=== PATIENT | female | born 1940 | race Caucasian/White ===

== ENCOUNTER 2021-03-29 23:52 | Inpatient (IN) | payer MEDICARE ==
[~2021-03-29] VITALS: Ht 162.6 cm; Wt 63.8 kg
[2021-03-30] MEDS ORDERED: PRECOSE100 MG PO (00:08)
[2021-03-30] MEDS ORDERED: NORVASC5 MG PO (00:09)
[2021-03-30] MEDS ORDERED: ASPIRIN325 MG PO (00:09)
[2021-03-30] MEDS ORDERED: LIPITOR20 MG PO (00:10)
[2021-03-30] MEDS ORDERED: BACLOFEN10 MG PO (00:11)
[2021-03-30] MEDS ORDERED: BUTRANS1 EAC3 TRANSDERM (00:12)
[2021-03-30] MEDS ORDERED: ROCALTROL0.25 MCG PO (00:13)
[2021-03-30] MEDS ORDERED: DONEPEZIL HCL5 MG PO (00:13)
[2021-03-30] MEDS ORDERED: CARDURA1 MG PO (00:14)
[2021-03-30] MEDS ORDERED: FLUTICASONE PRO16 GM NASAL (00:15)
[2021-03-30] MEDS ORDERED: GABAPENTIN100 MG PO (00:15)
[2021-03-30] MEDS ORDERED: COZAAR25 MG PO (00:16)
[2021-03-30] MEDS ORDERED: NEURONTIN 300300 MG PO (00:16)
[2021-03-30] MEDS ORDERED: MELATONIN 3 MG1 TAB PO (00:17)
[2021-03-30] MEDS ORDERED: NAMENDA10 MG PO (00:17)
[2021-03-30] MEDS ORDERED: REMERON15 MG PO (00:18)
[2021-03-30] MEDS ORDERED: OMEPRAZOLE20 M1 PO (00:19)
[2021-03-30] MEDS ORDERED: OXYBUTYNIN CHLOR5 MG PO (00:19)
[2021-03-30] MEDS ORDERED: MIRALAX17 GM PO (00:20)
[2021-03-30] MEDS ORDERED: POTASSIUM CHLO10 ME1 PO (00:21)
[2021-03-30] MEDS ORDERED: SENNA LAXATIVE8.6 MG PO (00:22)
[2021-03-30] MEDS ORDERED: ULTRAM50 MG PO ×2 (00:23→00:24)
[2021-03-30] MEDS ORDERED: HUMULIN R100 UNIT/1 SC (00:28)
--- NOTE | 2021-03-30 12:20 | NUR ---
NEW ADMIT TO DR SCHWARTZ ON LONGTERM FOR SUICIDAL IDEATION FROM [facility]. PATIENT LIVES AT THE [facility]. PATIENT ATTEMPTED TO HANG HERSELF WITH A PHONE CORD. PATIENT TRANSPORTED TO LONGTERM VIA EMS. UPON ARRIVAL, PATIENT IS ANXIOUS AND AGITATED. PATIENT ANGRY ABOUT BEING PUT IN PAPER SCRUBS AT [facility]. PATIENT DENIES THOUGHTS OF SUICIDE AT THIS TIME. STATED SOMEONE WAS GOING TO KILL HER SO SHE WAS GOING TO KILL HERSELF BEFORE HE COULD. PATIENT IS DEPRESSED. PLEASANT AND COOPERATIVE WITH ADMISSION ASSESSMENTS. CONSENTS TO TREAT RECEIVED FROM HER , LEXIE DAVILA. PATIENT IS A FULL CODE. CODE OF 2677 GIVEN. UNIT INFORMATION GIVEN.
[2021-03-30 18:17] VITALS: BP 138/82
--- NOTE | 2021-03-30 19:48 | NUR ---
REECIVED IN DAYROOM. SITTING IN A CHAIR WITH PEERS AT HER SIDE. CALM AND COOPERATIVE WITH CARE AND ASSESSMENT. DENIES THOUGHTS OF SELF HARM. ENCOURAGE TO EXPRESS NEEDS. RESTING IN CALMLY IN BED WITH EYES OPEN. MHT AT BEDSIDE. STATES A PEERS AT HER INTERMEDIATE WAS GOING TO KILL HER AND THATS WHY TRIED TO KILL HERSELF BEFORE THEY COULD DO IT. CONTINUE PLAN OF CARE.
[2021-03-30 20:20] VITALS: BP 151/62
[2021-03-31 00:28] LABS: BASOPHILS 0.9 % (0-2); HEMATOCRIT 35.6 % (36.0-48.0); HEMOGLOBIN 12.1 g/dL (12-16); LYMPHOCYTES 20.3 % (15-50); MCHC 33.9 g/dL (31.0-37.0); MCV 88.4 fL (80.0-100.0); MEAN PLATELET VOLUME 8.8 fL (7.4-10.4); MONOCYTES 6.8 % (2-11); PLATELET COUNT 220 10x3/uL (130-400); RBC 4.02 10x6/uL (4.00-5.40); RDW 13.6 % (11.5-14.5); WBC 7.2 10x3/uL (4.8-10.8)
--- NOTE | 2021-03-31 01:01 | NUR ---
NEGATIVE COVID RESULTS RECEIVED FROM [facility] IN [place]. RESULTS IN CHART.
[2021-03-31 01:24] LABS: ALBUMIN 3.4 g/dL (3.4-5.0); ANION GAP 11.1 mmol/L (8-16); BILIRUBIN - TOTAL 0.5 mg/dL (0.2-1.3); CALCIUM 9.4 mg/dL (8.5-10.1); CARBON DIOXIDE 24.7 mmol/L (21.0-32.0); CREATININE - SERUM 1.2 mg/dL (0.6-1.3); POTASSIUM - SERUM 3.8 mmol/L (3.5-5.1); PROTEIN - SERUM 6.7 g/dL (6.4-8.2); THYROID STIMULATING HORMONE 1.99 uIU/mL (0.36-3.74)
[2021-03-31 08:00] VITALS: BP 106/60
[2021-03-31 08:07] LABS: CHOL - HDL RATIO 2.8 ratio (2.3-4.1); LDL-HDL RATIO 1.2 ratio (1.5-3.5)
[2021-03-31 09:11] LABS: BILIRUBIN NEGATIVE (NEGATIVE); KETONE NEGATIVE (NEGATIVE); NITRITE NEGATIVE (NEGATIVE); UROBILINOGEN NORMAL mg/dL (< 2)
[2021-03-31 09:13] LABS: BACTERIA FEW HPF (NONE SEEN); SQUAMOUS EPITHELIAL 0-5 HPF (0-4); WHITE CELLS - URINE 0-5 HPF (0-4)
[2021-03-31 10:05] VITALS: Ht 162.6 cm; Wt 63.8 kg
[2021-03-31 11:16] LABS: CKMB 2.4 U/L (0.0-3.6); CREATINE KINASE 83 UL (21-215); TROPONIN-I < 0.017 ng/mL (0.000-0.060)
[2021-03-31 17:04] LABS: CKMB 2.9 U/L (0.0-3.6); CREATINE KINASE 90 UL (21-215)
[2021-03-31 17:05] LABS: TROPONIN-I < 0.017 ng/mL (0.000-0.060)
--- NOTE | 2021-03-31 17:06 | NUR ---
ORIENTED X 3.COMPLIANT WITH STAFF AND MEDS.KEEPS TO SELF MUCH OF THE DAY BUT DOES SOCIALIZE WITH PEERS.DENIES THOUGHTS OF HARMING SELF.WILL CONTINUE WITH CURRENT PLAN OF CARE,MONITOR FOR CHANGES AND SAFETY.
[2021-03-31 20:00] VITALS: BP 104/46
[2021-03-31 23:10] LABS: CKMB 3.7 U/L (0.0-3.6); CREATINE KINASE 108 UL (21-215)
[2021-03-31 23:11] LABS: TROPONIN-I < 0.017 ng/mL (0.000-0.060)
--- NOTE | 2021-04-01 04:28 | NUR ---
B)RECEIVED PATIENT SITTING OUTSIDE THE NURSE'S STATION. INTERACTIVE WITH PEERS. PT BELIEVED HAD HIRED SOME PEOPLE TO KILL HER HOWEVER SHE WAS GOING TO BEAT THEM TO IT. RELATES SHE FEELS SAFE HERE AND DENIES SI. CALM AND COOPERATIVE. I)ADMINISTER MEDS AND MONITOR COMPLIANCE. OBTAIN VERBAL NO HARM CONTRACT. R)MED COMPLIANT. CONTRACTS VERBALLY FOR NO SELF HARM. P)CONTINUE POC AND PROVIDE SAFE ENVIRONMENT.
[2021-04-01 06:11] LABS: RAPID PLASMA REAGIN Non Reactive (Non Reactive)
[2021-04-01 08:02] VITALS: BP 100/67
--- NOTE | 2021-04-01 19:03 | NUR ---
IS ORIENTED X 3.DENIES THOUGHTS OF SELF HARM .IS COMPLIANT WITH STAFF AND MEDS.PROPELLS SELF IN WHEELCHAIR.MOOD IS MUCH BETTER TODAY,SMILES AND SOCIALIZES WITH STAFF AND PEERS.WILL CONTINUE WITH CYRRENT PLAN OF CARE,MONITOR FOR CHANGES AND SAFETY.
[2021-04-01 20:15] VITALS: BP 143/67
--- NOTE | 2021-04-02 02:06 | NUR ---
B) Patient is alert and oriented X 3, calm and cooperative, denies S.I, I) Administered scheduled medications as ordered, monitored for safety, contracted for safety R) Medication compliant,pleasant and friendly, P) Continue plan of care.
[2021-04-02 08:00] VITALS: BP 110/51
--- NOTE | 2021-04-02 15:22 | PN ---
PATIENT:SANDY DAVILA MEDICAL RECORD: [id number] LOCATION:[facility] ADMISSION DATE: 03/30/21 PROGRESS NOTE DATE OF SERVICE: 04/01/2021 SUBJECTIVE: The patient's case was discussed with staff. She has no new complaint. OBJECTIVE: The patient is in good behavioral control. She has poor insight about her situation. ASSESSMENT: 1. Dementia. 2. Major depression. PLAN: The patient will have her Zoloft increased to 25 mg daily. Zoloft is being used to treat her underlying depressive symptoms. She will be monitored for clinical symptoms associated with its use. TRANSINT:[id number] Voice Confirmation ID: [id number] DOCUMENT ID: [id number] OLVIN SCHWARTZ MD at 1522 CC: [id number] DICTATION DATE: 04/01/21 1636 TIE BINDER: 04/02/21 0338 ADM IN [facility] [address] [place] [address]
--- NOTE | 2021-04-02 15:22 | PN ---
PATIENT:SANDY DAVILA MEDICAL RECORD: [id number] LOCATION:[facility] ADMISSION DATE: 03/30/21 PROGRESS NOTE DATE OF SERVICE: 03/31/2021 SUBJECTIVE: The patient's case was discussed with staff. She has no new complaint. OBJECTIVE: The patient slept reasonably well last night. She denies that she would seek to hurt herself. She is partially oriented. ASSESSMENT: 1. Dementia. 2. Major depression. PLAN: The patient will be maintained on current medications. Her long-term prognosis is guarded. TRANSINT:[id number] Voice Confirmation ID: [id number] DOCUMENT ID: [id number] OLVIN SCHWARTZ MD at 1522 CC: [id number] DICTATION DATE: 03/31/21 1519 PAINT TRIMMER PIPE BOWLS: 04/02/21 0052 ADM IN [facility] [address] [id number]
--- NOTE | 2021-04-02 16:24 | NUR ---
Nutrition Re-Assessment Diet: Cardiac PO intake: ~52% average x last 6 meals Last BM: 03/31/21 Wt: 130.6# (04/02/21) Meds noted: magox, miralax, SSI Labs noted: POC Glu 275(H) Estimated nutrition needs: 1200-1475cal (20-25kcal/kg Act), 47-59gms protein (0.8-1gms/kg), 1475-1775mL fluid (or per MD) Nutrition diagnosis: -Altered nutrition related lab values r/t DM dx AEB elevated blood glucose. -Inadequate energy intake r/t inadequate oral intake AEB PO intake <65%. Nutrition goals: -PO intake =/>65% meals -Meet fluid needs -Stable weight DHS -Blood glucose to trend nearer WNL Recomendations/Interventions: -Will change diet to diabetic 2/2 PMHx of DM dx and currently elevated blood glucose. -Will add Glucerna TID with meals. -Will honor food preferences within diet restrictions. -RD will follow-up within 7 days.
--- NOTE | 2021-04-02 18:05 | NUR ---
Rec'd patient this am self propelling her w/c about the unit.She is a/o times [address] to [address]. She is med compliant and takes her meds whole without diff. She denies any suicide ideation, self harm, or injury. She has not demonstrated any type of suicidal behavior. She has been calm and cooperative. She has sat with another new patient this afternoon and talked and laughed sitting in their own group. She attended group therapy this morning and participated well. Her spouse, after passcode verified, spoke with patient per phone call this afternoon.
[2021-04-02 20:00] VITALS: BP 124/50
--- NOTE | 2021-04-02 21:56 | NUR ---
PT IS ALERT AND ORIENTED TO SELF, PLACE AND SITUATION. RECEIVED IN DAYROOM SOCIALIZING WITH PEERS. CALM AND COOPERATIVE WITH STAFF. EXPRESSESS APPRECIATION FOR STAFF AND CARE PROVIDED. COMPLIANT WITH ALL MEDICATIONS. EASY TO REDIRECT. ABLE TO VOICE NEEDS AND WANTS. DENIES SI. MONITOR FOR SAFETY.
[2021-04-03 11:58] VITALS: BP 146/76
--- NOTE | 2021-04-03 11:59 | NUR ---
ALERT, CALM, COOPERATIVE, NO SUICIDAL IDEATIONS NOTED. MEDS ADMIN PER ORDERS. NO ADVERSE REACTION TO MEDS. CALLED AND STATED THAT HE WOULD BE PRESENT FOR VISITATION.
--- NOTE | 2021-04-03 15:24 | PN ---
PATIENT:SANDY DAVILA MEDICAL RECORD: [id number] LOCATION:[facility] ADMISSION DATE: 03/30/21 PROGRESS NOTE DATE OF SERVICE: 04/02/2021 SUBJECTIVE: The patient's case was discussed with staff. She has no new complaint. OBJECTIVE: The patient is in good behavioral control with limited insight about her condition. She is tolerating her medications reasonably well. ASSESSMENT: Dementia. PLAN: Current medicines have been reviewed. The patient is not having any suicidal thoughts. She will be maintained on current medicines. TRANSINT:[id number] Voice Confirmation ID: [id number] DOCUMENT ID: [id number] OLVIN SCHWARTZ MD at 1524 CC: [id number] DICTATION DATE: 04/02/21 170 PRODUCT PROMOTER RETAIL PET: 04/03/21 0029 ADM IN [facility] [address] [place] [address]
[2021-04-03 20:00] VITALS: BP 118/57
--- NOTE | 2021-04-03 21:59 | NUR ---
RECEIVED PATIENT IN DAYROOM SITTING WITH OTHER PATIENTS, COMPLIANT WITH MEDS, ABLE TO MAKE NEEDS KNOWN, SHE IS NERVOUS AT BED TIMED REGARDING OTHER PATIENTS COMING INTO HER ROOM, SHE HAS BEEN ASSURED OVER AND OVER OF HER SAFETY FROM THE TECH. WILL FOLLOW POC
--- NOTE | 2021-04-04 03:03 | NUR ---
PATIENT GIVEN TRAMADOL 50mg PO FOR GENERALIZED PAIN 7 OF 10.
[2021-04-04 08:04] VITALS: BP 110/40
[2021-04-04 11:32] VITALS: BP 110/40
--- NOTE | 2021-04-04 15:23 | NUR ---
Rec'd patient this am sitting in the hallway. She is A/O times 1 to person.She is med compliant and takes her meds whole without diff. She participated in group therapy today and likes to sit with another patient and visit. s he is very quiet . She has shown no aggression past day 1 to this nurse. She denies any suicide ideation or harm. FSBS AT [phone]
[2021-04-04 20:00] VITALS: BP 166/96
--- NOTE | 2021-04-05 00:17 | NUR ---
RECEIVED PATIENT IN DAYROOM, SHE IS PLEASANT, DENIES SUICIDIAL IDEATIONS, COMPLIANT WITH MEDS, MAKES NEEDS KNOWN. WILL FOLLOW POC
[2021-04-05 10:36] VITALS: BP 98/43
--- NOTE | 2021-04-05 17:49 | NUR ---
ALERT, CALM, COOPERATIVE, MEDICATION COMPLIANT. DENIES SUICIDAL IDEATIONS. NO ADVERSE REACTION TO MEDS. SPOUSE HERE FOR VISITATION TIME. SOMETIMES GETS AGITATED WITH OTHER PATIENTS. CONTINUE PLAN OF CARE.
[2021-04-05 20:00] VITALS: BP 126/40
--- NOTE | 2021-04-06 00:52 | NUR ---
RECEIVED PATIENT IN HER ROOM, SHE IS PLEASANT, HOLDS EYE CONTACT, DENIES S/I. COMPLIANT WITH MEDS. MAKES HER NEEDS KNOWN. WILL FOLLOW POC
[2021-04-06 07:30] VITALS: BP 119/57
--- NOTE | 2021-04-06 17:43 | NUR ---
Alert, calm, cooperative, denies suicidal ideations. Meds admim per orders with complete med compliance noted. No adverse reaction to meds. Tends to get aggravated at times with other patients, however there was no episodes of agitation noted this shift. Cont. POC.
[2021-04-06 23:36] VITALS: BP 132/44
--- NOTE | 2021-04-06 23:52 | NUR ---
RECEIVED IN HALLWAY OUSIDE OF NURSES STATION. SOCIAL WITH PEERS. CALM AND COOPERATIVE WITH CARE AND ASSESSMENT. NO STATEMENTS OF SELF HARM VOICED. ENCOURAGE TO EXPRESS NEEDS. RESTING IN BED WITH EYES CLOSED AT THIS TIME. CONTINUE PLAN OF CARE.
[2021-04-07 07:30] VITALS: BP 156/56
--- NOTE | 2021-04-07 12:15 | NUR ---
RECEIVED IN HALLWAY OUTSIDE OF NURSES STATION. SOCIALIZING WITH PEERS. CALM AND COOPERATIVE WITH CARE AND ASSESSMENT. DENIES SUICIDAL IDEATION. STATES SHE DOESNT WANT TO AND WOULD NOT EVER ATTEMPT TO KILL HERSELF AGAIN. STATED SHE DIDNT WANT TO WHEN SHE ATTEMPTED AND THAT SHE ONLY DID IT BECAUSE SHE HAD TO KILL HERSELF BEFORE THE OTHER RIN WAS GOING TO KILL HER. REDIRECT AND REORIENT NEEDED. EATING LUNCH AT THIS TIME. CONTINUE PLAN OF CARE.
--- NOTE | 2021-04-07 20:18 | NUR ---
RECEIVED IN HALLWAY OUTSIDE OF NURSES STATION. SITTING WITH PEERS AT HER SIDE. SOCIAL. CALM AND COOPERATIVE WITH CARE AND ASSESSMENT. NO STATEMENTS OF SELF HARM VOICED. ENCOURAGE TO EXPRESS NEEDS. CONTINUES TO SIT CALMLY IN HALLWAY. CONTINUE PLAN OF CARE.
[2021-04-07 23:05] VITALS: BP 127/57
[2021-04-08 08:00] VITALS: BP 124/85
--- NOTE | 2021-04-08 10:48 | PN ---
PATIENT:SANDY DAVILA MEDICAL RECORD: [id number] LOCATION:[facility] ADMISSION DATE: 03/30/21 PROGRESS NOTE DATE OF SERVICE: 04/03/2021 SUBJECTIVE: The patient's case was discussed with staff. She has no new complaint. OBJECTIVE: The patient is depressed and withdrawn. She has not been significantly disruptive in any way. ASSESSMENT: Dementia. PLAN: The patient is sleeping well. Her appetite is better. The antidepressant medication is going to have to be given more of an opportunity to become effective. Her long-term prognosis is guarded. TRANSINT:[id number] Voice Confirmation ID: [id number] DOCUMENT ID: [id number] OLVIN SCHWARTZ MD at 1048 CC: [id number] DICTATION DATE: 04/03/21 1548 INTERNETWORKING TECHNICIAN: 04/03/21 1702 ADM IN [facility] [address] [id number]
--- NOTE | 2021-04-08 14:44 | NUR ---
RECEIVED PATIENT IN HALLWAY SOCIALIZING WITH PEERS. PATIENT DENIES SUICIDAL IDEATION AT THIS TIME. PATIENT IS AWAKE AND ALERT X4. CALM AND COOPERATIVE WITH ASSESSMENT. PRESCRIBED MEDICATIONS PROVIDED ORDERED. MED COMPLIANT. PATIENT'S BEHAVIOR IS PLEASANT AT THIS TIME. FALL PRECAUTIONS IN PLACE FOR SAFETY. WILL CONTINUE PLAN OF CARE.
--- NOTE | 2021-04-08 21:40 | NUR ---
RECEIVED IN HALLWAY OUTSIDE OF NURSES STATION. SOCIAL WITH PEERS. CALM AND COOPERATIVE WITH CARE AND ASSESSMENT. NO STATEMENTS OF SELF HARM VOICED. ENCOURAGE TO EXPRESS NEEDS. RESTING QUIETLY IN BED. CONTINUE PLAN OF CARE.
[2021-04-08 21:41] VITALS: BP 105/44
[2021-04-09 08:00] VITALS: BP 157/73
--- NOTE | 2021-04-09 12:46 | PN ---
PATIENT:SANDY DAVILA MEDICAL RECORD: [id number] LOCATION:[facility] ADMISSION DATE: 03/30/21 PROGRESS NOTE DATE OF SERVICE: 04/08/2021 SUBJECTIVE: The patient's case was discussed with staff. She has no new complaint. OBJECTIVE: The patient is in good behavioral control with poor insight about her condition. She tolerates her medicines well. ASSESSMENT: 1. Dementia. 2. Major depression. PLAN: Current medicines and therapies have been reviewed and will be maintained. Long-term prognosis is guarded. TRANSINT:[id number] Voice Confirmation ID: [id number] DOCUMENT ID: [id number] OLVIN SCHWARTZ MD at 1246 CC: [id number] DICTATION DATE: 04/08/21 1721 INSTRUCTION ASSISTANT PRINCIPAL: 04/08/21 [address] [facility] [address] [place] [address]
--- NOTE | 2021-04-09 15:18 | NUR ---
Rec'd patient this am amublatory in hallway but she keeps her w/c close for long distances. She is a/o to person and situation. She is very confused at times. She is calm and cooperative. She is med compliant and takes her meds whole without diff. She denies any suicidal ideations or self harm. She is directable and redirectable. She sat in group this am and participated well.
--- NOTE | 2021-04-09 16:37 | NUR ---
Nutrition Re-Assessment Diet: Diabetic + Glucerna with meals PO intake: 100% x last 9 meals Last BM: 04/08/21 x 2 Wt: 137# (04/06/21); Admit Wt: 130# (03/30/21) Meds noted: Magox, miralax, SSI Labs noted: POC Glu 180(H) Estimated nutrition needs: 1200-1475cal (20-25kcal/kg Act), 47-59gms protein (0.8-1gms/kg), 1475-1775mL fluid (or per MD) Nutrition diagnosis: Altered nutrition related lab values r/t DM dx AEB elevated blood glucose. Nutrition goals: -PO intake =/>65% meals -Meet fluid needs -Stable weight DHS -Blood glucose to trend WNL Recommendations/Interventions: -Recommend continue current diet. Will continue to honor food preferences within diet restrictions. -Will continue to monitor PO intake and wt trend. -RD will follow-up within 7 days.
[2021-04-09 20:00] VITALS: BP 118/58
--- NOTE | 2021-04-10 03:23 | NUR ---
B)RECEIVED PATIENT SITTING OUTSIDE THE NURSE'S STATION. INTERACTIVE WITH PEERS. ALERT AND ORIENTED. CALM AND COOPERATIVE. I)ADMINISTER MEDS AND MONITOR COMPLIANCE. OBTAIN VERBA CONTRACT FOR NO SELF HARM. R)MED COMPLIANT. CONTRACTS VERBALLY FOR NO SELF HARM DENIES SI. P)CONTINUE POC AND PROVIDE SAFE ENVIRONMENT.
[2021-04-10 09:29] VITALS: BP 129/57
--- NOTE | 2021-04-10 15:14 | PN ---
PATIENT:SANDY DAVILA MEDICAL RECORD: [id number] LOCATION:[facility] ADMISSION DATE: 03/30/21 PROGRESS NOTE DATE OF SERVICE: 04/09/2021 SUBJECTIVE: The patient's case was discussed with staff. She has no new complaint. OBJECTIVE: The patient is in good behavioral control. She has a depressed mood and no thoughts of self-harm. She is partially oriented. ASSESSMENT: 1. Major depression. 2. Dementia. PLAN: The patient will be treated with a slightly higher dose of Zoloft. Her long-term prognosis is guarded. Both supportive and educational interventions were made. TRANSINT:[id number] Voice Confirmation ID: [id number] DOCUMENT ID: [id number] OLVIN SCHWARTZ MD at 1514 CC: [id number] DICTATION DATE: 04/09/21 1738 COMMERCIAL TRUCK DRIVER: 04/10/21 0110 ADM [id number] [place] [address]
--- NOTE | 2021-04-10 15:15 | NUR ---
Rec'd patient this am up sitting in a w/c. She is a/o times 2 to person and situation. She is med compliant and took her meds whole. Her blood glucose level was 154 at noon. She rec'd a skin tear to her right forearm that occured ont top of a bruise. She states she "gets them all the time". She states she doesn't know how it happened.Area cleaned, pulled skin together, applies steri strips and covered with kami and tapped in place She is directable and redirectable.
[2021-04-10 20:00] VITALS: BP 122/47
--- NOTE | 2021-04-11 01:32 | NUR ---
B)RECEIVED PATIENT SITTING OUTSIDE THE NURSE'S NIC. ORIENTED X4. INTERACTS WITH PEERS AND STAFF. RELATES SHE TRIES TO DO WHAT IS ASKED OF HER AND NOT BE A TROUBLE MAKER. CALM AND COOPERATIVE. I)ADMINISTER MEDS AND MONITOR COMMPLIANCE. OBTAIN VERBAL CONTRACT FOR NO SELF HARM. R)MED COMPLIANT. CONTRACTS VERBALLY FOR NO SELF HARM. DENIES SI. P)CONTINUE POC AND PROVIDE SAFE ENVIRONMENT.
--- NOTE | 2021-04-11 03:31 | NUR ---
PATIENT GIVEN TRAMADOL 50 MG PO FORBACK PAIN 7 OF 10.
[2021-04-11 10:11] VITALS: BP 152/62
--- NOTE | 2021-04-11 14:04 | NUR ---
Rec'd this am sitting up in a w/c in hallway. She is a/o to person and situation. She is med compliant and took meds whole without diff. She has demonstrated no signs of suicidal ideation or self harm. She has sat with the group but has visited with the female patient next to her or napped.
--- NOTE | 2021-04-11 18:52 | NUR ---
pt sitting in the hallway speaking with another pt at this time. pt become upset with other pt stating loudly "why don't you get the hell out of here?" nurse the patients and resolved issue.
[2021-04-11 20:00] VITALS: BP 106/41
--- NOTE | 2021-04-11 22:38 | NUR ---
PT IS ALERT AND ORIENTED X4. RECEIVED IN THE HALLWAY OUTSIDE OF THE NURSES STATION. PLEASANT WITH STAFF. ABLE TO VOICE NEEDS AND WANTS. EXPRESSES REGRETS FOR HER BEHAVIOR WITH ANOTHER PT EARLIER THIS EVENING. COMPLIANT WITH ALL MEDICATIONS. DENIES SI. EASY TO REDIRECT. MONITOR FOR SAFETY.
[2021-04-12 09:39] VITALS: BP 98/74
--- NOTE | 2021-04-12 16:00 | NUR ---
SPOUSE HERE FOR VISIT.
--- NOTE | 2021-04-12 18:51 | NUR ---
IS ORIENTED X 3.COMPLIANT WITH MEDS AND STAFF BUT HAS INTERFERED WITH INTERACTIONS BETWEEN PEERS.SHE TOLD A MALE PATIENT TO QUIT TALKING TO A FEMALE PATIENT AND THE TWO OF THEM KICKED AT EACH OTHER BEFORE THIS NURSE WAS ABLE TO SEPERATE THEM.THERE WERE NO INJURIES AND THEY BOTH WERE REDIRECTED AND COMPLIED.WILL CONTINUE WITH CURRENT PLAN OF CARE,MONITOR FOR CHANGES AND SAFETY.
[2021-04-12 22:23] VITALS: BP 197/76
--- NOTE | 2021-04-12 23:57 | NUR ---
PT IS ALERT AND ORIENTED X4. RECEIVED IN A WHEELCHAIR OUTSIDE THE NURSES STATION. OBSERVED CONSOLING PEERS. RELATES THAT TODAY WAS A BAD DAY. SHE STATES "THOSE TWO GENTLEMAN WERE TRYING TO TAKE HER AWAY FROM ME AND SHE WAS VERY SCARED. I TOLD THE STAFF BUT THEY TOLD ME TO MIND MY OWN BUSINESS AND I GOT UPSET AND KICKED AT ONE OF THE MEN BECAUSE THEY WOULDNT LEAVE MY FRIEND ALONE." ENCOURAGED PT TO INFORM STAFF AND TO LET THEM HANDLE THE SITUATION FOR HER SAFETY. COMPLIANT WITH ALL MEDICATIONS. EASY TO REDIRECT. MONITOR FOR SAFETY.
[2021-04-13 09:21] VITALS: BP 112/50
--- NOTE | 2021-04-13 18:06 | NUR ---
Rec'd patient up this am in hallway. She can self propel in her w/c/ She is med compliant. She is directable and redirectable. She has a small skin tear to rt. FA. Her spouse Abel calls, after password verified, requesting how she is doing today. She sat with the group and participated some. She has kept to herself and more alone today.
--- NOTE | 2021-04-13 20:30 | NUR ---
RECEIVED IN HALLWAY. SITTING IN HALLWAY WITH PEERS AT HER SIDE. CALM AND COOPERATIVE WITH CARE AND ASSESSMENT. NO STATEMENTS OF SELF HARM VOICED THIS EVENING. ENCOURAGE TO EXPRESS NEEDS. CONTINUES TO SIT CALMLY IN HALLWAY. CONTINUE PLAN OF CARE.
[2021-04-13 21:48] VITALS: BP 189/68
[2021-04-14 08:00] VITALS: BP 182/71
--- NOTE | 2021-04-14 08:00 | NUR ---
REC'D PT SITTING IN HALLWAY SOCIALIZING WITH PEERS. AWAKE AND ALERT X 3. CALM AND COOPERATIVE WITH ASSESSMENT. NO BEHAVIORS NOTED. PT MOOD IS PLEASANT. PRESCRIBEDE MEDS PROVIDED ORDERED. MED COMPLIANT. REDIRECT AND REORIENT NEEDED. FALL PRECAUTIONS IN PLACE. WILL CPOC.
--- NOTE | 2021-04-14 14:38 | PN ---
PATIENT:SANDY DAVILA MEDICAL RECORD: [id number] LOCATION:[facility] ADMISSION DATE: 03/30/21 PROGRESS NOTE DATE OF SERVICE: 04/10/2021 SUBJECTIVE: The patient's case was discussed with staff. She has no new complaint. OBJECTIVE: The patient is in good behavioral control. She has shown improvement in her mood and behaviors. ASSESSMENT: 1. Dementia. 2. Major depression. PLAN: The patient has no thoughts of self-harm. She is going to require a great deal of supervision and the details of how this will be accomplished are still being worked out. TRANSINT:[id number] Voice Confirmation ID: [id number] DOCUMENT ID: [id number] OLVIN SCHWARTZ MD at 1438 CC: [id number] DICTATION DATE: 04/10/21 1602 BOILER ASSISTANT OPERATOR: 04/10/21 223 ADM IN [facility] [address] [place] [address]
[2021-04-14] MEDS ORDERED: NITROQUICK0.4 MG SL (16:20)
[2021-04-14] MEDS ORDERED: XANAX0.25 MG PO (16:20)
[2021-04-14] MEDS ORDERED: SEROQUEL25 MG PO (16:21)
[2021-04-14] MEDS ORDERED: ZOLOFT50 MG PO (16:21)
[2021-04-14] MEDS ORDERED: MAG-OX 400 MG400 MG PO (16:22)
[2021-04-14] MEDS ORDERED: PROTONIX40 MG PO (16:22)
[2021-04-14 20:00] VITALS: BP 138/57
--- NOTE | 2021-04-14 20:40 | NUR ---
RECEIVED IN HALLWAY. SITTING IN A CHAIR WITH PEERS AT HER SIDE. CALM AND COOPERATIVE WITH CARE AND ASSESSMENT. NO STATEMENTS OF SELF HARM VOICED. ENCOURAGE TO EXPRESS NEEDS. CONTINUES TO SIT CALMLY IN HALLWAY. CONTINUE PLAN OF CARE.
[2021-04-15 08:02] VITALS: BP 159/56
--- NOTE | 2021-04-15 08:27 | NUR ---
repack room worker contacted patient's daughter Loulou to alert at discharge today between 1130. No other needs were voiced at this time. Patient is going back to [facility].
--- NOTE | 2021-04-15 11:45 | NUR ---
PT DISCHARGED TO [facility]. ALL PAPERWORK FAXED AND COPY SENT WITH PT AT THIS TIME. PT TRANSPORTED PER [facility] COPYIST. NO S/SX OF DISTRESS NOTED.
--- NOTE | 2021-04-15 11:52 | PN ---
PATIENT:SANDY DAVILA MEDICAL RECORD: [id number] LOCATION:[facility] ADMISSION DATE: 03/30/21 PROGRESS NOTE DATE OF SERVICE: 04/14/2021 SUBJECTIVE: The patient's case was discussed with staff. She has no new complaint. OBJECTIVE: The patient is partially oriented. Her mood is near euthymic. She certainly has no thoughts of harming herself. ASSESSMENT: 1. Dementia. 2. Major depression. PLAN: The patient will be transitioned out of the hospital tomorrow. Her long-term prognosis is guarded. She will have followup with her primary care correction physician. TRANSINT:[id number] Voice Confirmation ID: [id number] DOCUMENT ID: [id number] OLVIN SCHWARTZ MD at 1152 CC: [id number] DICTATION DATE: 04/14/21 1616 SUPERVISOR PUBLICATIONS: 04/14/212036 ADM IN [id number] [place] [address]
--- NOTE | 2021-04-16 14:02 | DS ---
PATIENT:SANDY DAVILA :38 MEDICAL RECORD: [id number] DISCHARGE SUMMARY ADMISSION DATE: 03/30/21 DISCHARGE DATE: 04/15/21 IDENTIFYING DATA: The patient is 81 years old and she was admitted to the hospital on a voluntary basis. CHIEF COMPLAINT: Suicidal gesture. HISTORY OF PRESENT ILLNESS: The patient was transferred to us from the [facility] Emergency Department. She apparently has been living in a shelter and wrapped a phone cord around her neck with the intention of trying to kill herself. She did report suicidal ideations and endorsed numerous depressive symptoms. She also showed a great deal of confusion. HOSPITAL COURSE: The patient was admitted to the hospital and evaluated from both a medical, psychological, and social standpoint. She was treated with both antidepressant and memory enhancing medications and did show improvement through the course of the hospitalization such that she could be returned to the shelter. 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 AXIS II: None. AXIS III: Diabetes, hypertension, congestive heart failure, chronic kidney disease, neuropathy. AXIS IV: Moderate stressors. AXIS V: Global Assessment of Functioning is 40. PLAN: At the time of discharge, the patient was in good behavioral control and had no active thoughts of harming herself or others. She was tolerating her medicines well. Her long-term prognosis is guarded and followup will be with her primary care shelter physician. TRANSINT:[id number] Voice Confirmation ID: [id number] DOCUMENT ID: [id number] OLVIN SCHWARTZ MD at 1402 CC: [id number] DICTATION DATE: 04/15/21 1603 HEARING HEALTHCARE PRACTITIONER: 04/16/21 0423 DIS IN 04/15/[id number] [place] [address]
== END 2021-04-15 11:45 | DRG 57 ==
LOC: D.PSYCH 23:52 → EDBD 03-30 10:11 → D.PSYCH 03-30 10:11
PROVIDERS: Family Medicine; ADMIT Psychiatry & Neurology Psychiatry; ATTEND Psychiatry & Neurology Psychiatry
DX: G30.1 Alzheimer's disease with late onset (principal); F33.2 Major depressive disorder, recurrent severe without psychotic features; N39.0 Urinary tract infection, site not specified; F02.80 Dementia in other diseases classified elsewhere, unspecified severity, without behavioral disturbance, psychotic disturbance, mood disturbance, and anxiety; I12.9 Hypertensive chronic kidney disease with stage 1 through stage 4 chronic kidney disease, or unspecified chronic kidney disease; E11.22 Type 2 diabetes mellitus with diabetic chronic kidney disease; N18.30 Chronic kidney disease, stage 3 unspecified; I25.10 Atherosclerotic heart disease of native coronary artery without angina pectoris; K21.9 Gastro-esophageal reflux disease without esophagitis; M17.0 Bilateral primary osteoarthritis of knee; G47.00 Insomnia, unspecified; K59.00 Constipation, unspecified; N32.81 Overactive bladder; E11.40 Type 2 diabetes mellitus with diabetic neuropathy, unspecified; R26.9 Unspecified abnormalities of gait and mobility; X83.8XXA Intentional self-harm by other specified means, initial encounter